=== PATIENT | female | born 1930 | race Caucasian/White ===

== ENCOUNTER 2017-01-18 10:24 | Emergency (ER) | payer OTHER ==
[2017-01-18 10:41] VITALS: RESP 18
--- NOTE | 2017-01-18 11:36 | EDPHY ---
H & P Stated Complaint: Redness to R lateral malleolus x 1 wk;? "spider bite" Time Seen by Provider: 01/18/17 11:33 HPI/ROS: HPI: This 86-year-old female who presents with Chief Complaint: Redness to R lateral malleolus x 1 wk;? "spider bite" Location: Right ankle Quality: Insect bite Duration: 1 week Signs and Symptoms:+ redness, + warmth, no pain, no radiation, no weakness, no paresthesias, no fever Timing: Gradual onset, waxing and waning Severity: Mild Context: Most of history is provided by patient's [id number]-ufn and son. Patient complains of presumed spider bite to her right lateral ankle over the malleolus approximately 1 week ago. Her tetanus is up-to-date per family. They have been cleaning it daily with mild soap and water and then soaking it in a bleach bath for several minutes per day. Cakncjzf-[id number]-tzc and son went away for 2 days and the advice nurse did not continue daily wound care. Yesterday they do notice worsening of the redness and warmth in the area and they became concerned. Patient had an echocardiogram today scheduled outpatient to the thought that stop by the ER to have the site evaluated. They have a follow-up appointment with her primary care provider at the end of this week. She is ambulatory without any deficits. Modifying Factors: See above Comment: ROS: see HPI Constitutional: No fever, no chills, no weight loss Eyes: No blurred vision Respiratory: No shortness of breath, no cough Cardiovascular: No chest pain Gastrointestinal: No nausea, no vomiting, no diarrhea Genitourinary: No dysuria Extremities: No myalgias Neurologic: No weakness, no numbness Skin: No rashes Hematologic: No bruising, no bleeding MEDICAL/SURGICAL/SOCIAL HISTORY: Medical history: chronic back pain glaucoma thyroid Surgical history: Denies Social history: Strong social support. CONSTITUTIONAL: Pleasant well-appearing elderly female, awake and alert, no obvious distress HEENT: Atraumatic and normocephalic, PERRL, EOMI. Tympanic membranes clear. Oropharynx clear, no exudate and moist pink mucosa. Airway patent. No lymphadenopathy. No meningismus. Cardiovascular: Normal S1/S2, regular rate, regular rhythm, without murmur rub or gallop. PULMONARY/CHEST: Symmetrical and nontender. Clear to auscultation bilaterally. Good air movement. No accessory muscle usage. ABDOMEN: Soft, nondistended, nontender, no rebound, no guarding, no peritoneal signs, no masses or organomegaly. No CVAT. EXTREMITIES: 2/2 pulses, 4 cm mildly erythematous area over the right lateral malleolus; no fluctuance; no warmth. Right ankle has full range of motion. Light touch sensation intact. Achilles is intact. No calf tenderness. No palpable cords. no deformities, no clubbing, no cyanosis or edema. NEUROLOGICAL: no focal neuro deficits. GCS 15. SKIN: Warm and dry, no erythema. no rash. Good capillary refill. Source: Patient, Family (daughter in [place] and son) - Personal History Current Tetanus Diphtheria and Acellular Pertussis (TDAP): Unsure - Medical/Surgical History Other PMH: chronic back pain. glaucoma. thyroid - Social History Smoking Status: Never smoked Constitutional: Initial Vital Signs Temperature (C) 36.5 C 01/18/17 10:30 Heart Rate 86 01/18/17 10:30 Respiratory Rate 18 01/18/17 10:30 Blood Pressure 111/64 01/18/17 10:30 O2 Sat (%) 96 01/18/17 10:30 O2 Delivery Mode Room Air Allergies/Adverse Reactions: No Known Allergies Allergy (Unverified 01/18/17 10:40) Home Medications: Medication Instructions Recorded Calcitonin,[place],Synthetic 3.7 ml NS 01/18/17 [Miacalcin] Cephalexin [Keflex (*)] 500 mg PO TID #21 cap 01/18/17 Glaucoma Drops 01/18/17 Levothyroxine [Synthroid 75 mcg 75 mcg PO DAILY06 01/18/17 (*)] Medical Decision Making ED Course/Re-evaluation: No fluctuance to I and D No signs of cellulitis/neurovascular compromise/tenting of skin/compartment syndrome/extremities and joints examined above and below area of concern and are neurovascularly intact. Differential Diagnosis: Differential diagnosis includes but is not limited to cellulitis, abscess, inflammation, or allergic reaction to insect bite. Departure - Departure Disposition: Home, Routine, Self-Care Clinical Impression: Spider bite Qualifiers: Encounter type: initial encounter Injury intent: accidental or unintentional Qualified Code(s): T63.301A - Toxic effect of unspecified spider venom, accidental (unintentional), initial encounter Condition: Good Instructions: Insect Bite or Sting (ED) Additional Instructions: Please continue to do daily wound care until fully healed. Follow up with primary care provider in 2-3 days for wound check. Take all antibiotics as directed until completed. Prescriptions: Cephalexin [Keflex (*)] 500 mg PO TID #21 cap
[2017-01-18 11:46] VITALS: BP 112/70; PULSE 80; TEMP 98.2; O2SAT 94
== END 2017-01-18 11:47 | disposition home or self-care (01) ==
DX: T63.301A Toxic effect of unspecified spider venom, accidental (unintentional), initial encounter (principal)

== ENCOUNTER → 2017-01-18 | Outpatient (CLI) | payer OTHER | LOC: FIMAGING 12:13 | PROVIDERS: ATTEND Family Medicine | DX: S22.070A Wedge compression fracture of T9-T10 vertebra, initial encounter for closed fracture (principal) ==